=== PATIENT | female | born 1985 | race Caucasian/White ===

== ENCOUNTER 2018-12-31 02:45 | Inpatient (IN) ==
[2018-12-31] MEDS ORDERED: PANTOPRAZOLE 40 MG VIAL IV STA (04:04)
[2018-12-31] MEDS ORDERED: SODIUM CHLORIDE 0.9% 1,000 ML IV STA (04:04)
[2018-12-31] MEDS ORDERED: KETOROLAC 30 MG/1 ML VIAL IV STA (04:04)
[2018-12-31] MEDS ORDERED: ONDANSETRON 4 MG/2 ML VIAL IV STA ×2 (04:04→08:51)
[2018-12-31] MEDS ORDERED: HYDROmorphone 2 MG/1 ML VIAL IV STA ×2 (04:04→08:51)
[2018-12-31 04:59] LABS: Basophils # 0.1 10*3/uL (0.0-0.2); Basophils % 0.8 % (0.0-0.8); Eosinophils # 0.1 10*3/uL (0.0-0.87); Eosinophils % 1.3 % (0.00-10.9); Hemoglobin 12.9 GM/DL (12.0-16.0); Immature Granulocytes % 0.3 %; Immature Granulocytes Absolute 0.02 #; Lymphocytes # 2.3 10*3/uL (1.4-4.0); Lymphocytes % 30.8 % (21.3-54.2); Mean Corpuscular HGB Conc 31.5 GM/DL (32-36); Mean Corpuscular Volume 89.1 FL (87-102); Mean Platelet Volume 12.4 FL (9.6-12.0); Monocytes % 8.7 % (1.7-12.7); Neutrophils % 58.1 % (38.7-73.9); Platelet Count 202 T/CUMM (130-400); Red Cell Distribution Width 12.9 % (9.3-17.3); White Blood Count 7.4 T/CUMM (4-12)
[2018-12-31 05:29] LABS: Albumin 3.7 G/DL (3.4-5.0); Calcium 9.3 MG/DL (8.5-10.1); Osmolality,Calculated 284.8 MOS/KG (273-304); Total Protein 6.3 G/DL (6.4-8.3)
[2018-12-31 07:46] LABS: Apearance,Urine CLEAR (Clear); Bilirubin,Urine Negative (Negative); Blood, Urine Negative (Negative); Glucose,Urine (UA) Negative (Negative); Ketones,Urine 20 mg/dL (Negative); Nitrite,Urine Negative (Negative); Protein,Urine Negative; Urine Color Yellow (Yellow); Urine Specific Gravity > 1.060 (1.001-1.035)
[2018-12-31 07:47] LABS: Mucus,Urine Few /LPF (Occasional); RBC,Urine 1 /HPF (0-4); Squamous Epithelial Cell,Urine Occasional /HPF (0-10); Urine Urobilinogen < 2.0 EU/DL (0.2-1.0); WBC,Urine <1 /HPF (0-6)
[2018-12-31] MEDS ORDERED: LEVOFLOXACIN INJ 500 MG in PREMIX 1 EACH IV ONE (08:54)
[2018-12-31] MEDS ORDERED: metroNIDAZOLE INJ 500 MG in PREMIX 1 EACH IV ONE (08:54)
[2018-12-31] MEDS ORDERED: HYDROmorphone 2 MG/1 ML VIAL IV PRN (08:55)
[2018-12-31] MEDS ORDERED: ACETAMINOPHEN 325 MG TABLET PO PRN (08:55)
[2018-12-31] MEDS ORDERED: ONDANSETRON 4 MG/2 ML VIAL IV PRN ×2 (08:55→11:38)
[2018-12-31] MEDS ORDERED: ALBUTEROL/IPRATROPIUM 3 ML NEB RESP TX PRN (08:55)
[2018-12-31] MEDS ORDERED: BISACODYL 5 MG TABLET PO PRN (08:55)
[2018-12-31] MEDS ORDERED: BUPIVACAINE 0.25% /EPI 10 ML VIAL ONE (09:17)
[2018-12-31] MEDS ORDERED: LIDOCAINE 1%/EPI INJ 20 ML VIAL ONE (09:17)
[2018-12-31] MEDS ORDERED: TISSUE ADHESIVE 1 EACH APPLICATOR TOP ONE (09:17)
[2018-12-31] MEDS: LACTATED RINGERS 1,000 ML IV SCH ×2 (09:54→18:00)
[2018-12-31] MEDS ORDERED: LEVOFLOXACIN INJ 100 ML IV ONE (09:55)
[2018-12-31] MEDS ORDERED: PROPOFOL 200 MG/20 ML VIAL IV ONE (11:41)
[2018-12-31] MEDS ORDERED: SEVOFLURANE 1 UNIT/15 MINUTE INH ONE (11:41)
[2018-12-31] MEDS ORDERED: ONDANSETRON 4 MG/2 ML VIAL ONE ×2 (11:41→11:45)
[2018-12-31] MEDS ORDERED: GLYCOPYRROLATE 0.4 MG/2 ML VIAL ONE (11:41)
[2018-12-31] MEDS ORDERED: NALOXONE 0.4 MG/ML VIAL ONE (11:41)
[2018-12-31] MEDS ORDERED: fentaNYL 100 MCG/2 ML VIAL ONE (11:41)
[2018-12-31] MEDS ORDERED: MIDAZOLAM 2 MG/2 ML VIAL ONE (11:41)
[2018-12-31] MEDS ORDERED: SUCCINYLCHOLINE 200 MG/10 ML VIAL ONE (11:42)
[2018-12-31] MEDS ORDERED: NEOSTIGMINE 10 MG/10 ML VIAL ONE (11:42)
[2018-12-31] MEDS ORDERED: ROCURONIUM 100 MG/10 ML VIAL IV ONE (11:42)
[2018-12-31] MEDS ORDERED: LACTATED RINGERS 1,000 ML IV ONE (11:42)
[2018-12-31] MEDS ORDERED: HYDROmorphone 2 MG/1 ML VIAL ONE ×2 (11:45→15:31)
[2018-12-31] MEDS: HYDROmorphone 2 MG/1 ML VIAL IV PRN ×5 (11:49→15:33)
[2018-12-31] MEDS ORDERED: SIMETHICONE CHEW 125 MG TABLET PO PRN (19:46)
[2019-01-01] MEDS: PANTOPRAZOLE 40 MG TABLET PO SCH ×2 (02:18→09:52)
[2019-01-01] MEDS: HYDROmorphone 2 MG/1 ML VIAL IV PRN ×2 (02:23→09:39)
[2019-01-01 04:44] LABS: Basophils # 0.1 10*3/uL (0.0-0.2); Basophils % 0.8 % (0.0-0.8); Eosinophils # 0.2 10*3/uL (0.0-0.87); Eosinophils % 2.3 % (0.00-10.9); Hematocrit 37.6 VOL% (35.7-47.0); Hemoglobin 12.1 GM/DL (12.0-16.0); Immature Granulocytes % 0.3 %; Immature Granulocytes Absolute 0.02 #; Lymphocytes # 1.8 10*3/uL (1.4-4.0); Lymphocytes % 23.1 % (21.3-54.2); Mean Corpuscular HGB Conc 32.2 GM/DL (32-36); Mean Corpuscular Volume 89.5 FL (87-102); Mean Platelet Volume 11.6 FL (9.6-12.0); Monocytes % 8.6 % (1.7-12.7); Neutrophils % 64.9 % (38.7-73.9); Platelet Count 163 T/CUMM (130-400); Red Cell Distribution Width 12.9 % (9.3-17.3); White Blood Count 7.9 T/CUMM (4-12)
[2019-01-01] MEDS: LACTATED RINGERS 1,000 ML IV SCH (04:52)
[2019-01-01 05:08] LABS: Calcium 8.7 MG/DL (8.5-10.1); Osmolality,Calculated 282.8 MOS/KG (273-304)
[2019-01-01 07:22] VITALS: BP 94/50
== END 2019-01-01 10:54 | disposition home health service (06) | DRG 750 ==
LOC: N.ED 02:45 → N.EDINP 08:55 → N.3E 16:00
PROVIDERS: ADMIT Surgery; ATTEND Surgery